=== PATIENT | female | born 1975 | race Caucasian/White ===

== ENCOUNTER 2017-04-24 11:44 | Emergency (ER) | payer MEDICARE, MEDICAID ==
--- NOTE | 2017-04-24 12:41 | ED Physician Chart ---
ED Chief Complaint/HPI - Patient Information Date Seen:: 04/24/17 Time Seen:: 11:55 Chief Complaint:: Headaches History of Present Illness:: onset x 3 days of intermittent, bilateral frontal and parietal, throbbing migraine H/As that pt usually has; pt denies LOC, trauma, N/V, decreased activity, visual or gait changes, neck pain, weakness, dizziness, paresthesias, vertigo, C/P, SOB, Abd. 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:: Allergies Allergy/AdvReac Type Severity Reaction Status Date / Time hydromorphone [From Dilaudid] AdvReac Verified 04/24/17 11:55 Vitals:: Vital Signs - 8 hr 04/24/17 11:56 Temp 97.9 F HR 104 RR 15 BP 139/89 O2 Sat % 98 Historian:: Patient Review:: Nurse's Note Reviewed ED Review of Systems - Review of Systems General/Constitutional: No fever, No chills, No weight loss, No weakness, No diaphoresis, No edema, No loss of appetite Skin: No skin lesions, No rash, No bruising Head: Headache, No light-headedness Eyes: No loss of vision, No pain, No diplopia ENT: No earache, No nasal drainage, No sore throat, No tinnitus Neck: No neck pain, No swelling, No thyromegaly, No stiffness, No mass noted Cardio Vascular: No chest pain, No palpitations, No PND, No orthopnea, No edema Pulmonary: No SOB, No cough, No sputum, No wheezing GI: No nausea, No vomiting, No diarrhea, No pain, No melena, No hematochezia, No constipation, No hematemesis G/U: No dysuria, No frequency, No hematuria, No nacturia 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, No abnormal vaginal bleed, No contraction Musculoskeletal: No bone or joint pain, No back pain, No muscle pain Endocrine: No polyuria, No polydipsia Psychiatric: No prior psych history, No depression, No anxiety, No suicidal ideation, No homicidal ideation, No auditory hallucination, No visual hallucination Hematopoietic: No bruising, No lymphadenopathy Allergic/Immuno: No urticaria, No angioedema Neurological: No syncope, No focal symptoms, No weakness, No paresthesia, No headache, No seizure, No dizziness, No confusion, No vertigo ED Past Medical History - Past Medical History Obtainable: Yes Past Medical History: ESRD, Other (SLE) Family History: HTN Social History: Non Smoker, No Alcohol, No Drug Use, Surgical History: None Psychiatricy History: None Medication: Reviewed Family Medical History - Family Member Mother Hx Family Cancer: No Hx Family Congestive Heart Failure: No Hx Family Hypertension: No Hx Family Stroke: No Hx Family Seizures: No Hx Family AIDS: No Hx Family HIV: No Hx Family Hepatitis: No Hx Family Psychiatric Problems: No ED Physical Exam - Physical Examination General/Constitutional: Awake, Well-developed, well-nourished, Alert, No distress, GCS 15, Non-toxic appearing, Ambulatory Head: Atraumatic Eyes: Lids, conjuctiva normal, PERRL, EOMI Skin: Nl inspection, No rash, No skin lesions, No ecchymosis, Well hydrated, No lymphadenopathy ENMT: External ears, nose nl, TM canals nl, Nasal exam nl, Lips, teeth, gums nl , Oropharynx nl, Tonsils nl Neck: Nontender, Full ROM w/o pain, No JVD, No nuchal rigidity, No bruit, No mass, No stridor Other Neck comments:: supple; no meningeal signs; no cervical tenderness; no bruits Respiratory: Nl effort/Exclusion, Clear to Auscultation, No Wheeze/Rhonchi/Rales Cardio Vascular: RRR, No murmur, gallop, rubs, NL S1 S2, Carotid/Femoral/Distal pulses equal bilaterally GI: No tenderness/rebounding/guarding, No organomegaly, No hernia, Normal BS's, Nondistended, No mass/bruits, No McBurney tenderness Other GI comments:: no pulsatile masses : No CVA tenderness Extremities: No tenderness or effusion, Full ROM, normal strength in all extremities, No edema, Normal digits & nails Neuro/Psych: Alert/oriented, DTR's symmetric, Normal sensory exam, Normal motor strength, Judgement/insight normal, Mood normal, Normal gait, No focal deficits Misc: Normal back, No paraspinal tenderness ED Labs/Radiology/EKG Results - Lab Results Comments:: UCG: Negative - Radiology Results Comments:: NAD ED Septic Shock - . Is Septic Shock (SBP<90, OR Lactate>4 mmol\L) present?: No - <6hrs of presentation: Vital Signs: Vital Signs - 8 hr 04/24/17 11:56 Temp 97.9 F HR 104 RR 15 BP 139/89 O2 Sat % 98 ED Reassessment (Disposition) - Reassessment Reassessment:: pt tolerated po fluids well in ER; pt is asymptomatic upon discharge Reassessment Condition:: Improved - Diagnosis Diagnosis:: Vascular Cephalgia; N/V; Headaches; Migraine Headaches - Aftercare/Follow up Instructions Aftercare/Follow-Up Instructions:: Counseled pt regarding lab results/diagnosis & need follow up, Refer to Discharge Instructions, Counseled pt & family regarding lab results/diagnosis & need follow up - Patient Disposition Discharge/Transfer:: Home Condition at Disposition:: Stable, Improved (RTER prn if existing s/s reoccur and/or get worse and/or any other new s/s occur; X-Rays Instructions; ACIs given for all above Dx; Refer to Neurologist/Radiation Control Health Physicist [facility]; Clear Liquids; Fluids; F/U with PMD in one day or prn; RTER prn if concerned)
--- NOTE | 2017-04-24 14:07 | Diagnostic Imaging Report ---
Head CT without intravenous contrast Indication: Headache Comparison: None Technique: Axial images were obtained from the vertex to the skull base without IV contrast. Coronal reconstructions were made. Total DLP: [id number], [id number] FINDINGS: Images of the brain obtained without contrast demonstrate no evidence of an acute hemorrhage. The yu-white matter differentiation is preserved. The ventricles and basal cisterns are patent. No mass effect or midline shift. Atherosclerotic vascular disease of the bilateral distal vertebral arteries are noted. No evidence of a skull fracture or focal soft tissue swelling. The Visualized paranasal sinuses are clear. IMPRESSION: No acute intracranial abnormality. Atherosclerosis of the bilateral distal vertebral arteries. The significance of this finding should be correlated clinically.
[2017-04-24] MEDS ORDERED: Morphine Sulfate 2 mg/mL 1mL Syr IV STA (14:29)
[2017-04-24] MEDS ORDERED: Morphine Sulfate 2 mg/mL 1mL Syr ONE (14:40)
== END 2017-04-24 15:09 | disposition home or self-care (01) ==
LOC: ER 11:44
DX: G43.909 Migraine, unspecified, not intractable, without status migrainosus (principal); G44.1 Vascular headache, not elsewhere classified; R11.2 Nausea with vomiting, unspecified; N18.6 End stage renal disease
CPT/HCPCS: 99284; 96374; 96375; 70450; J2270; J2405; 81025-TC; J1200; Z7502